=== PATIENT | female | born 1965 | race Caucasian/White ===

== ENCOUNTER 2017-05-06 19:10 | Emergency (ER) | payer OTHER ==
[2017-05-06 21:45] VITALS: BP 119/82
== END 2017-05-06 21:45 | disposition home or self-care (01) ==
LOC: ED 19:10
DX: S81.852A Open bite, left lower leg, initial encounter (principal); L03.116 Cellulitis of left lower limb; W54.0XXA Bitten by dog, initial encounter; Y93.89 Activity, other specified; Y92.89 Other specified places as the place of occurrence of the external cause; Y99.8 Other external cause status
CPT/HCPCS: J1885

== ENCOUNTER 2017-09-04 15:43 | Emergency (ER) | payer OTHER ==
[2017-09-04 17:27] VITALS: BP 120/64
== END 2017-09-04 17:27 | disposition home or self-care (01) ==
LOC: ED 15:43
DX: S00.81XA Abrasion of other part of head, initial encounter (principal); F10.129 Alcohol abuse with intoxication, unspecified; Y08.89XA Assault by other specified means, initial encounter; Y93.89 Activity, other specified; Y99.8 Other external cause status; Y92.89 Other specified places as the place of occurrence of the external cause